=== PATIENT | female | born 1985 | race Caucasian/White ===

== ENCOUNTER → 2017-03-06 | Outpatient (CLI) | payer OTHER ==
[2017-03-06 19:42] LABS: CHOLESTEROL LEVEL 159 MG/DL (<200); TRIGLYCERIDES LEVEL 40 MG/DL (<150)
--- NOTE | 2017-03-06 20:48 | REP ---
Clinical: Pain. Technique: Single AP view of the pelvis. Findings: Osseous structures and joint spaces are symmetric and normal. Surrounding soft tissues are unremarkable. Phleboliths noted in the pelvis. Impression: Normal pelvic radiograph. Signed by Beto Gomez MD 03/06/2017 05:53 P
[2017-03-09 00:06] LABS: Lyme Disease IgG/IgM Antibodie <0.91 ISR (0.00-0.90); Lyme Disease IgM Ab Quantitati <0.80 index (0.00-0.79)
== END ==
LOC: M LAB 15:38
PROVIDERS: ATTEND Nurse Practitioner Family
DX: Z13.220 Encounter for screening for lipoid disorders (principal); Z13.29 Encounter for screening for other suspected endocrine disorder; M25.559 Pain in unspecified hip; R63.5 Abnormal weight gain; M36.8 Systemic disorders of connective tissue in other diseases classified elsewhere; R53.81 Other malaise

== ENCOUNTER 2018-10-20 12:54 | Emergency (ER) | payer MEDICAID, OTHER ==
[~2018-10-20] VITALS: Ht 165.1 cm; Wt 54.5 kg
[2018-10-20] MEDS ORDERED: POLY33503 (13:04)
[2018-10-20] MEDS ORDERED: PENT10CA PO (13:04)
[2018-10-20] MEDS ORDERED: FLUO10TA2 (13:04)
[2018-10-20] MEDS ORDERED: LACTULOSE 20 GM/30 ML SYRUP UD PO ONE (15:45)
--- NOTE | 2018-10-20 15:45 | REP ---
KUB, TWO VIEWS: HISTORY: Constipation. A small amount of air is present in small and large intestine. There are no air fluid levels or dilated loops of intestine. There is no pneumoperitoneum. A small amount of stool is present in the colon. IMPRESSION: Nonspecific bowel gas pattern. Electronically Signed by Rupert Ford MD 10/20/2018 03:46 P
[2018-10-20] MEDS ORDERED: COLA100C5 PO (16:17)
[2018-10-20 16:27] VITALS: BP 160/80
[2018-12-18] MEDS ORDERED: FLUO20CA8 PO (16:24)
[2018-12-18] MEDS ORDERED: FLUO10CA8 PO (16:28)
[2018-12-18] MEDS ORDERED: TRUL3TAB PO (16:28)
== END 2018-10-20 16:38 | disposition home or self-care (01) ==
LOC: M ED 12:54
DX: R10.9 Unspecified abdominal pain (principal)

== ENCOUNTER → 2018-12-25 | Outpatient (CLI) | payer OTHER ==
[~2018-12-25] MED LIST: COLA100C5 PO; FLUO10CA8 PO; FLUO10TA2; FLUO20CA8 PO; PENT10CA PO; POLY33503; TRUL3TAB PO
[2018-12-25 16:02] LABS: FREE T4 0.99 NG/DL (0.76-1.46); THYROID STIMULATING HORMONE 0.796 uIU/ML (0.358-3.740)
== END ==
LOC: M LAB 15:08
PROVIDERS: ATTEND Internal Medicine Gastroenterology
DX: K58.1 Irritable bowel syndrome with constipation (principal)

== ENCOUNTER 2019-01-01 06:43 | Day surgery (SDC) | payer OTHER ==
[~2019-01-01] VITALS: Ht 160 cm; Wt 56.7 kg
[~2019-01-01 06:43] MED LIST changes: +NS 1,000 ML IV ONE
[2019-01-01] MEDS ORDERED: LIDOCAINE 2% INJ 100 MG/5 ML SDV (FOR ANES.) As Ordered ONE (07:04)
[2019-01-01] MEDS ORDERED: PROPOFOL 200 MG/20 ML VIAL As Ordered ONE (07:04)
--- NOTE | 2019-01-01 07:51 | ROOR ---
Patient Name: Latonya Jiménez Procedure Date: 01/01/2019 7:37 AM Date of : 1985 Age: 33 Room: [facility] Gender: Female Note Status: Finalized Procedure: Colonoscopy Indications: Follow-up for history of colon polyps, Irritable bowel syndrome with constipation Providers: Abdullahi WEBER MD Referring MD: Kaylie CHAMBERLAIN NP Requesting Provider: Medicines: Monitored Anesthesia Care Complications: No immediate complications. Procedure: Pre-Anesthesia Assessment: - The heart rate, respiratory rate, oxygen saturations, blood pressure, adequacy of pulmonary ventilation, and response to care were monitored throughout the procedure. The Colonoscope was introduced through the anus and advanced to 10 cm into the ileum. The colonoscopy was performed without difficulty. The patient tolerated the procedure well. The quality of the bowel preparation was good. Findings: The perianal and digital rectal examinations were normal. Small Internal Hemorrhoids. The entire examined colon appeared normal on direct and retroflexion views. The terminal ileum appeared normal. Retroflexion in the right colon was performed. Impression: - Small Internal Hemorrhoids. - The entire colon is normal on direct and retroflexion views. - The examined portion of the ileum was normal. - No specimens collected. Recommendation: - Continue present medications. Abdullahi Weber MD Abdullahi WEBER MD 01/01/2019 7:50:52 AM This report has been signed electronically. Number of Addenda: 0 Note Initiated On: 01/01/2019 7:37 AM Estimated Blood Loss: Estimated blood loss: none.
[2019-01-01 08:05] VITALS: BP 111/89
== END 2019-01-01 08:15 | disposition home or self-care (01) ==
LOC: M OPP 06:43
PROVIDERS: ATTEND Internal Medicine Gastroenterology
DX: K58.1 Irritable bowel syndrome with constipation (principal); K64.8 Other hemorrhoids; Z86.010 Personal history of colon polyps; Z87.891 Personal history of nicotine dependence

== ENCOUNTER → 2019-08-12 | Outpatient (CLI) | payer OTHER ==
[~2019-08-12] MED LIST changes: -NS 1,000 ML IV ONE; +PROHANCE 279.3MG/ML 15ML VIAL (A9576) As Ordered ONE
--- NOTE | 2019-08-13 09:58 | REP ---
RIGHT PELVIS WITH AND WITHOUT CONTRAST: COMPARISON: [facility] 07/24/2019. CLINICAL HISTORY: Pain, vulvar cyst. In the left posterior lateral vaginal wall there is a simple appearing cyst which is homogenously hypointense on T1 and hyperintense on T2. There is no internal enhancement. It measures approximately 2.0 x 1.8 x 1.8 cm. This is consistent with a Bartholin gland cyst. The uterus is anteverted. Uterine length is approximately 8.3 cm. Endometrial thickness is approximately 8 mm. There are normal appearing follicles in the right ovary. There is a dominant follicle which measures 1.9 cm. In the left ovary there is a hemorrhagic follicle measuring 1.2 cm. Trace physiologic amount of free fluid is seen in the pelvis. No adenopathy is seen. The visualized osseous structures demonstrate normal marrow signal. IMPRESSION: Findings consistent with a simple left Bartholin gland cyst with no internal solid component and no enhancement. Maximum diameter is 2 cm. No evidence of suspicious ovarian mass. Trace free fluid in the cul-de-sac is likely physiologic. Electronically Signed by Harry Chen MD 08/16/2019 02:47 P
== END ==
LOC: M RAD 16:06
PROVIDERS: ATTEND Obstetrics & Gynecology Obstetrics
DX: N75.0 Cyst of Bartholin's gland (principal)
CPT/HCPCS: 72197; A9576

== ENCOUNTER → 2019-09-07 | Outpatient (REF) | payer OTHER ==
[~2019-09-07] MED LIST changes: -PROHANCE 279.3MG/ML 15ML VIAL (A9576) As Ordered ONE
[2019-09-11 14:58] LABS: HPV HYBRID CAPTURE II Negative (Negative)
== END ==
LOC: M SFHCWAGY 16:15
PROVIDERS: ATTEND Nurse Practitioner Family
DX: Z12.4 Encounter for screening for malignant neoplasm of cervix (principal)

== ENCOUNTER → 2020-03-10 | Outpatient (CLI) | payer OTHER ==
[~2020-03-10] MED LIST changes: +FLUO10CA15 PO; -FLUO10CA8 PO; +FLUO20CA20 PO; -FLUO20CA8 PO
--- NOTE | 2020-03-10 12:40 | REP ---
REASON FOR EXAM: Chronic pelvic pain. COMPARISON: 10/28/2007, which was within normal limits. Transvesical imaging only was performed. I am unsure why transvaginal imaging was not performed. It is not stated on the worksheet that the patient refused transvaginal imaging. The lack of transvaginal imaging decreases the sensitivity of the exam. The uterus measures 8.2 x 3.4 x 4.2 cm. The parenchymal echo pattern is within normal limits. The endometrial echo complex is smooth and unremarkable appearing measuring 1.3 cm in thickness. In the cervical region, there are two hypoechoic structures, the largest measures 2.2 x 2.4 x 1.8 cm. Color Doppler shows no blood flow. The right ovary measures 4.7 x 3.9 cm and is within normal limits. The left ovary measures 4.8 x 3.6 x 4 cm. Within the left ovary, there is a 3.4 x 2.4 cm sized anechoic structure. There is no significant free fluid in the cul-de-sac. A trace amount of free fluid was present. Urinary bladder measures approximately 11 x 5 x 10 cm. IMPRESSION: 1. There is a simple cyst in the left ovary as described above. Consider 2-month followup. 2. There appear to be complex nabothian cysts as described above. These were not present on the prior ultrasound exam. 3. There is a trace amount of free pelvic fluid probably physiologic. It should be stated that the prior pelvic MRI of 08/12/2019 did not show evidence of nabothian cysts. A Bartholin cyst was noted. Today's ultrasound examination did not image that portion of the vagina as that was not ordered. Consider re-evaluation with pelvic MRI for comparison to the prior exam if clinically relevant.
== END ==
LOC: M WHC 11:23
PROVIDERS: ATTEND Nurse Practitioner Family
DX: G89.29 Other chronic pain (principal); R10.2 Pelvic and perineal pain; N83.202 Unspecified ovarian cyst, left side; R93.5 Abnormal findings on diagnostic imaging of other abdominal regions, including retroperitoneum

== ENCOUNTER → 2020-05-03 | Outpatient (CLI) | payer OTHER ==
[~2020-05-03] MED LIST changes: -FLUO10CA15 PO; +FLUO10CA16 PO
--- NOTE | 2020-05-04 01:15 | REP ---
PELVIC ULTRASOUND: Real-time sonographic evaluation of pelvis performed utilizing transabdominal and endovaginal technique. Bladder measures 10.4 x 6.8 cm. Uterus measures 7.2 x 3.5 x 4.1 cm. Endometrial thickness is 7 mm. Complex nabothian cyst measures 2.3 x 1.5 x 1.3 cm. Right ovary measures 3.0 x 1.6 x 4.1 cm. There is a dominant follicle in the right ovary 1.6 cm in maximum diameter. The left ovary measures 3.2 x 2.2 x 2.9 cm. Complex cystic structure of the left ovary measures 2.4 x 1.9 x 2.3 cm. Previously, there was an anechoic cyst in the left ovary with a maximum diameter of 3.4 cm. No ovarian torsion is seen bilaterally with duplex Doppler evaluation. An oval anechoic cyst is seen posterior to the uterus 2.1 x 1.3 x 1.8 cm. This probably represents a small benign paraovarian cyst. IMPRESSION: Decreased size left ovarian cyst now containing complex fluid.
== END ==
LOC: M WHC 14:00
PROVIDERS: ATTEND Nurse Practitioner Family
DX: N83.202 Unspecified ovarian cyst, left side (principal)

== ENCOUNTER → 2021-02-06 | Outpatient (CLI) | payer OTHER ==
[~2021-02-06] MED LIST changes: +PLEC3TAB PO; -TRUL3TAB PO
--- NOTE | 2021-02-06 11:30 | REP ---
INDICATION: PELVIC PAIN DURING MENSES COMPARISON: 05/03/2020 TECHNIQUE: Transabdominal pelvic ultrasound with color Doppler evaluation of the ovaries. FINDINGS: Bladder is unremarkable and measures 11.3 x 11.5 x 8.6 cm. Normal anteverted uterus measures 8.2 x 3.2 x 3.9 cm. The endometrial complex measures 5.0 mm thickness. Previously suggested complex nabothian cyst not visualized on current exam Bilateral ovaries are normal in appearance and vascularity without evidence for torsion. Right ovary measures 4.1 x 2.2 x 3.2 cm; R I = 0.56. Left ovary measures 5.1 x 3.8 x 4.4 cm with 4.2 x 3.1 x 3.5 cm complex presumed physiologic hemorrhagic cyst; R I = 0.49. IMPRESSION: 1. Normal uterus and right ovary. 2. 4.2 cm possible hemorrhagic cyst in the left ovary. This may represent a new finding or residual complex cyst as noted on prior exam. Consider follow-up examination in 4-6 weeks to evaluate for resolution. <Electronically signed by Beto Gomez > 02/06/21 [id number]
== END ==
LOC: M RAD 09:48
PROVIDERS: ATTEND Physician Assistant
DX: R10.2 Pelvic and perineal pain (principal)

== ENCOUNTER → 2021-09-11 | Outpatient (CLI) | payer OTHER | LOC: M WHC 15:27 | PROVIDERS: ATTEND Nurse Practitioner Women's Health | DX: Z53.9 Procedure and treatment not carried out, unspecified reason (principal); Z12.31 Encounter for screening mammogram for malignant neoplasm of breast ==

== ENCOUNTER → 2021-09-11 | Outpatient (REF) | payer OTHER | LOC: M SFHCWAGY 19:27 | PROVIDERS: ATTEND Nurse Practitioner Women's Health | DX: Z12.4 Encounter for screening for malignant neoplasm of cervix (principal) ==

== ENCOUNTER 2022-04-28 17:01 | Emergency (ER) | payer OTHER ==
[~2022-04-28] VITALS: Ht 162.6 cm; Wt 56.6 kg
[~2022-04-28 17:01] MED LIST changes: +FLUO-96 PO; -FLUO10CA16 PO; +FLUO10CA18 PO; -FLUO20CA20 PO
[2022-04-28] MEDS ORDERED: ERGO500029 (17:12)
[2022-04-28] MEDS ORDERED: EMETSOL PO ×2 (17:23→17:25)
[2022-04-28] MEDS ORDERED: MUCI1LIQ3 PO (17:23)
[2022-04-28] MEDS ORDERED: QC A650T3 PO (17:23)
[2022-04-28 18:21] LABS: BASO % 0.2 % (0.0-1.0); EOS # 0.1 10^3/uL (0.0-0.5); EOS % 0.9 % (0.0-3.0); HEMATOCRIT 43.5 % (36.0-47.0); LYMPH # 2.2 10^3/uL (1.5-5.0); LYMPH % 39.5 % (24.0-44.0); MEAN CORPUSCULAR HEMOGLOBIN 28.2 pg (27.0-33.0); MEAN CORPUSCULAR HGB CONC 32.2 g/dl (32.0-36.5); MEAN CORPUSCULAR VOLUME 87.5 fl (80.0-96.0); MONO # 0.4 10^3/uL (0.0-0.8); MONO % 7.2 % (2.0-8.0); NEUTROPHILS # 2.9 10^3/uL (1.5-8.5); PLATELET COUNT, AUTOMATED 213 10^3/uL (150-450); RED BLOOD COUNT 4.97 10^6/uL (4.00-5.40); WHITE BLOOD COUNT 5.5 10^3/uL (4.0-10.0)
[2022-04-28 18:46] LABS: ALBUMIN 3.7 GM/DL (3.2-5.2); BILIRUBIN,DIRECT 0.2 MG/DL (0.0-0.2); BILIRUBIN,TOTAL 0.3 MG/DL (0.2-1.0); TOTAL PROTEIN 6.8 GM/DL (6.4-8.2)
[2022-04-28] MEDS ORDERED: PSEU120T19 PO (19:43)
[2022-04-28] MEDS ORDERED: FLON27.5 NARES (19:43)
[2022-04-28 20:02] VITALS: BP 129/90
== END 2022-04-28 20:04 | disposition home or self-care (01) ==
LOC: M ED 17:01
DX: J06.9 Acute upper respiratory infection, unspecified (principal)

== ENCOUNTER → 2022-09-23 | Outpatient (CLI) | payer OTHER ==
[~2022-09-23] MED LIST changes: +EMETSOL PO; +ERGO500029; +FLON27.5 NARES; +MUCI1LIQ3 PO; +PSEU120T19 PO; +QC A650T3 PO
[2022-09-23 21:01] LABS: TOTAL 25(OH) VITAMIN D 65.5 NG/ML (30.0-100.0)
== END ==
LOC: M PLALAB 16:38
PROVIDERS: ATTEND Physician Assistant
DX: E55.9 Vitamin D deficiency, unspecified (principal); E63.8 Other specified nutritional deficiencies

== ENCOUNTER → 2022-09-23 | Outpatient (REF) | payer OTHER | LOC: M SFHCWAGY 13:06 | PROVIDERS: ATTEND Nurse Practitioner Family | DX: Z12.4 Encounter for screening for malignant neoplasm of cervix (principal) | CPT/HCPCS: 87624; G0123 ==

== ENCOUNTER → 2023-02-12 | Outpatient (CLI) | payer OTHER ==
[~2023-02-12] MED LIST changes: -FLUO10TA2; +FLUO1TAB
[2023-02-12 17:20] LABS: BASO # 0.1 10^3/uL (0.0-0.2); BASO % 0.7 % (0.0-1.0); EOS # 0.1 10^3/uL (0.0-0.5); EOS % 1.4 % (0.0-3.0); HEMATOCRIT 44.7 % (36.0-47.0); HEMOGLOBIN 14.2 g/dl (12.0-15.5); LYMPH # 2.9 10^3/uL (1.5-5.0); LYMPH % 41.4 % (24.0-44.0); MEAN CORPUSCULAR HEMOGLOBIN 27.9 pg (27.0-33.0); MEAN CORPUSCULAR HGB CONC 31.8 g/dl (32.0-36.5); MEAN CORPUSCULAR VOLUME 87.8 fl (80.0-96.0); MONO # 0.5 10^3/uL (0.0-0.8); MONO % 6.6 % (2.0-8.0); NEUTROPHILS # 3.5 10^3/uL (1.5-8.5); NEUTROPHILS % 49.8 % (36.0-66.0); PLATELET COUNT, AUTOMATED 301 10^3/uL (150-450); RED BLOOD COUNT 5.09 10^6/uL (4.00-5.40)
[2023-02-12 17:35] LABS: ERYTHROCYTE SEDIMENTATION RATE 6 mm/hr (0-20)
[2023-02-12 17:45] LABS: ALBUMIN 4.1 G/DL (3.2-5.2); ALKALINE PHOSPHATASE 68 U/L (46-116); ALT/SGPT 21 U/L (7.0-40); AST/SGOT 11 U/L (<34); BILIRUBIN,TOTAL 0.4 MG/DL (0.3-1.2); BLOOD UREA NITROGEN 13 MG/DL (9-23); CALCIUM LEVEL 9.3 MG/DL (8.5-10.1); CARBON DIOXIDE LEVEL 30 MMOL/L (20-31); CHLORIDE LEVEL 104 MMOL/L (98-107); CREATININE FOR GFR 0.65 MG/DL (0.55-1.30); GLOMERULAR FILTRATION RATE > 60.0 (>60); GLUCOSE, FASTING 75 MG/DL (60-100); POTASSIUM SERUM 4.3 MMOL/L (3.5-5.1); SODIUM LEVEL 139 MMOL/L (136-145); TOTAL PROTEIN 6.8 G/DL (5.7-8.2)
[2023-02-12 17:48] LABS: C REACTIVE PROTEIN QUANTITATIV < 0.40 MG/DL (<1.0)
[2023-02-12 17:49] LABS: FREE T3 3.5 PG/ML (2.3-4.2); FREE T4 0.97 NG/DL (0.89-1.76); IMMUNOGLOBULIN A 192.3 MG/DL (40-350); IMMUNOGLOBULIN G 811 MG/DL (650-1600); THYROID STIMULATING HORMONE 1.198 uIU/ML (0.55-4.78); TOTAL 25(OH) VITAMIN D 44.3 NG/ML (20.0-100.0)
[2023-02-12 17:50] LABS: PROGESTERONE 1.35 NG/ML; VITAMIN B12 LEVEL 1150 PG/ML (211-911)
[2023-02-12 17:52] LABS: THYROID PEROXIDASE ANTIBODY < 28.0 U/ML (<60.0)
[2023-02-17 11:07] LABS: ALUMINUM LEVEL 3 ug/L (0-9); ANTINUCLEAR ANTIBODIES DIRECT Negative (Negative); MAGNESIUM RBC LEVEL 4.4 mg/dL (4.2-6.8); Methylmalonic Acid 130 nmol/L (0-378); TISSUE TRANSGLUTAMINASE IgA <2 U/mL (0-3); UNITSIGA FOR GLIADIN IGA 7 units (0-19); UNITSIGG FOR GLIADIN IGG 16 units (0-19)
== END ==
LOC: M LAB 16:02
PROVIDERS: ATTEND Nurse Practitioner Pediatrics
DX: F32.81 Premenstrual dysphoric disorder (principal); F90.2 Attention-deficit hyperactivity disorder, combined type; F43.12 Post-traumatic stress disorder, chronic

== ENCOUNTER → 2023-06-16 | Outpatient (CLI) | payer OTHER ==
[~2023-06-16] MED LIST changes: +ISOVUE-370 76% 100ML VIAL As Ordered ONE
[2023-06-16 13:46] LABS: BASO # 0.1 10^3/uL (0.0-0.2); BASO % 0.7 % (0.0-1.0); EOS % 0.6 % (0.0-3.0); HEMOGLOBIN 14.6 g/dl (12.0-15.5); LYMPH # 2.4 10^3/uL (1.5-5.0); LYMPH % 33.5 % (24.0-44.0); MEAN CORPUSCULAR HEMOGLOBIN 29.7 pg (27.0-33.0); MEAN CORPUSCULAR HGB CONC 33.2 g/dl (32.0-36.5); MEAN CORPUSCULAR VOLUME 89.6 fl (80.0-96.0); MONO # 0.5 10^3/uL (0.0-0.8); MONO % 7.4 % (2.0-8.0); NEUTROPHILS # 4.1 10^3/uL (1.5-8.5); NEUTROPHILS % 57.5 % (36.0-66.0); PLATELET COUNT, AUTOMATED 213 10^3/uL (150-450); RED BLOOD COUNT 4.91 10^6/uL (4.00-5.40); WHITE BLOOD COUNT 7.1 10^3/uL (4.0-10.0)
[2023-06-16 14:14] LABS: LIPASE 31 U/L (12-53)
[2023-06-16 14:16] LABS: ALBUMIN 4.2 G/DL (3.2-5.2); ALKALINE PHOSPHATASE 61 U/L (46-116); ALT/SGPT 13 U/L (7.0-40); AST/SGOT < 8 U/L (<34); BILIRUBIN,TOTAL 0.9 MG/DL (0.3-1.2); BLOOD UREA NITROGEN 9 MG/DL (9-23); CALCIUM LEVEL 9.4 MG/DL (8.5-10.1); CARBON DIOXIDE LEVEL 29 MMOL/L (20-31); CHLORIDE LEVEL 104 MMOL/L (98-107); CREATININE FOR GFR 0.69 MG/DL (0.55-1.30); GLOMERULAR FILTRATION RATE > 60.0 (>60); GLUCOSE, FASTING 83 MG/DL (60-100); POTASSIUM SERUM 3.4 MMOL/L (3.5-5.1); SODIUM LEVEL 137 MMOL/L (136-145); TOTAL PROTEIN 7.4 G/DL (5.7-8.2)
== END ==
LOC: M RAD 13:14
PROVIDERS: ATTEND Physician Assistant
DX: R14.0 Abdominal distension (gaseous) (principal); R10.13 Epigastric pain; N80.9 Endometriosis, unspecified; R11.0 Nausea; N28.1 Cyst of kidney, acquired
CPT/HCPCS: 36415; 74177; 80053; 83690; 85025; Q9967

== ENCOUNTER 2023-09-25 09:48 | Emergency (ER) | payer OTHER ==
[~2023-09-25] VITALS: Ht 162.6 cm; Wt 50.0 kg
[~2023-09-25 09:48] MED LIST changes: -ISOVUE-370 76% 100ML VIAL As Ordered ONE
[2023-09-25] MEDS ORDERED: GABA-1171 (10:24)
[2023-09-25] MEDS ORDERED: AMPH1CAP16 (10:24)
[2023-09-25] MEDS ORDERED: SIME125C33 (10:24)
[2023-09-25] MEDS ORDERED: ONDA4TAB6 (10:24)
[2023-09-25] MEDS ORDERED: XIFA550T (10:24)
[2023-09-25] MEDS ORDERED: OMEP-173 (10:24)
[2023-09-25] MEDS ORDERED: CYAN-1 (10:24)
[2023-09-25] MEDS ORDERED: TRET0.0540 (10:24)
[2023-09-25 11:14] LABS: BASO % 0.2 % (0.0-1.0); EOS % 0.4 % (0.0-3.0); HEMATOCRIT 45.5 % (36.0-47.0); LYMPH # 0.5 10^3/uL (1.5-5.0); MEAN CORPUSCULAR HEMOGLOBIN 29.4 pg (27.0-33.0); MONO # 0.2 10^3/uL (0.0-0.8); MONO % 2.5 % (2.0-8.0); NEUTROPHILS # 8.5 10^3/uL (1.5-8.5); NEUTROPHILS % 91.5 % (36.0-66.0); PLATELET COUNT, AUTOMATED 194 10^3/uL (150-450); RED BLOOD COUNT 5.11 10^6/uL (4.00-5.40); WHITE BLOOD COUNT 9.3 10^3/uL (4.0-10.0)
[2023-09-25 11:15] LABS: APPEARANCE, URINE HAZY (CLEAR); BACTERIA, URINE AUTO NEGATIVE (NEGATIVE); BILIRUBIN, URINE AUTO NEGATIVE (NEGATIVE); BLOOD, URINE BLOOD NEGATIVE (NEGATIVE); COLOR, URINE YELLOW (YELLOW); GLUCOSE, URINE (UA) AUTO NEGATIVE (NEGATIVE); KETONE, URINE AUTO 2+ mg/dL (NEGATIVE); LEUKOCYTE ESTERASE, URINE AUTO NEGATIVE (NEGATIVE); MUCUS, URINE SMALL (NEGATIVE); NITRITE, URINE AUTO NEGATIVE (NEGATIVE); PROTEIN, URINE AUTO 1+ mg/dL (NEGATIVE); RBC, URINE AUTO 0 /HPF (0-3); SPECIFIC GRAVITY URINE AUTO 1.029 (1.002-1.035); SQUAMOUS EPITHELIAL CELL UR AU 3 /HPF (0-6); UROBILINOGEN, URINE AUTO 0.2 mg/dL (0.0-2.0); WBC, URINE AUTO 0 /HPF (0-3)
[2023-09-25 11:41] LABS: LIPASE 31 U/L (12-53)
[2023-09-25 11:42] LABS: HCG, SERUM QUANTITATIVE < 2.6 MIU/ML (<4.2)
[2023-09-25 11:44] LABS: ALKALINE PHOSPHATASE 68 U/L (46-116); ALT/SGPT 23 U/L (7.0-40); AMYLASE 96 U/L (30-118); AST/SGOT 13 U/L (<34); BILIRUBIN,DIRECT 0.4 MG/DL (<0.4); BILIRUBIN,TOTAL 1.3 MG/DL (0.3-1.2); BLOOD UREA NITROGEN 15 MG/DL (9-23); CALCIUM LEVEL 8.7 MG/DL (8.5-10.1); CARBON DIOXIDE LEVEL 28 MMOL/L (20-31); CHLORIDE LEVEL 105 MMOL/L (98-107); CREATININE FOR GFR 0.63 MG/DL (0.55-1.30); GLOMERULAR FILTRATION RATE > 60.0 (>60); GLUCOSE, FASTING 98 MG/DL (60-100); POTASSIUM SERUM 4.1 MMOL/L (3.5-5.1); SODIUM LEVEL 140 MMOL/L (136-145); TOTAL PROTEIN 6.7 G/DL (5.7-8.2)
[2023-09-25] MEDS ORDERED: DICYCLOMINE 10 MG CAP PO ONE (13:10)
[2023-09-25] MEDS ORDERED: NS 1,000 ML IV ONE (13:10)
[2023-09-25] MEDS ORDERED: ONDANSETRON 4MG 2ML VIAL IV ONE (13:10)
[2023-09-25] MEDS ORDERED: ISOVUE-370 76% 100ML VIAL As Ordered ONE (13:19)
[2023-09-25] MEDS ORDERED: ONDA4TAB6 PO (14:29)
[2023-09-25] MEDS ORDERED: CVS2.1SU PR (14:29)
[2023-09-25] MEDS ORDERED: NS 500 ML IV ONE (14:55)
[2023-09-25 16:20] VITALS: BP 108/62; TEMP 98.2; O2SAT 100
== END 2023-09-25 16:22 | disposition home or self-care (01) ==
LOC: M ED 09:48
DX: K59.00 Constipation, unspecified (principal); R11.2 Nausea with vomiting, unspecified; Z90.89 Acquired absence of other organs; N80.9 Endometriosis, unspecified; Z98.890 Other specified postprocedural states; Z79.899 Other long term (current) drug therapy
CPT/HCPCS: 74177; 80048; 80076; 81001; 82150; 83690; 84702; 85025; 96361; 96374; 99284; J2405; Q9967

== ENCOUNTER → 2023-10-18 | Outpatient (CLI) | payer OTHER ==
[~2023-10-18] MED LIST changes: +AMPH1CAP16; +CVS2.1SU PR; +CYAN-1; +GABA-1171; +OMEP-173; +ONDA4TAB6; +ONDA4TAB6 PO; +SIME125C33; +TRET0.0540; +XIFA550T
[2023-10-18 09:19] LABS: BASO % 0.7 % (0.0-1.0); EOS # 0.1 10^3/uL (0.0-0.5); EOS % 2.4 % (0.0-3.0); HEMATOCRIT 43.1 % (36.0-47.0); HEMOGLOBIN 14.1 g/dl (12.0-15.5); LYMPH # 2.4 10^3/uL (1.5-5.0); LYMPH % 43.7 % (24.0-44.0); MEAN CORPUSCULAR HEMOGLOBIN 29.3 pg (27.0-33.0); MEAN CORPUSCULAR HGB CONC 32.7 g/dl (32.0-36.5); MEAN CORPUSCULAR VOLUME 89.6 fl (80.0-96.0); MONO # 0.5 10^3/uL (0.0-0.8); MONO % 8.6 % (2.0-8.0); NEUTROPHILS # 2.4 10^3/uL (1.5-8.5); NEUTROPHILS % 44.4 % (36.0-66.0); PLATELET COUNT, AUTOMATED 216 10^3/uL (150-450); RED BLOOD COUNT 4.81 10^6/uL (4.00-5.40); WHITE BLOOD COUNT 5.5 10^3/uL (4.0-10.0)
[2023-10-18 09:50] LABS: BLOOD UREA NITROGEN 11 MG/DL (9-23); CARBON DIOXIDE LEVEL 26 MMOL/L (20-31); CHLORIDE LEVEL 106 MMOL/L (98-107); CREATININE FOR GFR 0.65 MG/DL (0.55-1.30); GLOMERULAR FILTRATION RATE > 60.0 (>60); GLUCOSE, FASTING 85 MG/DL (60-100); POTASSIUM SERUM 4.2 MMOL/L (3.5-5.1); SODIUM LEVEL 138 MMOL/L (136-145)
[2023-10-18 09:52] LABS: FREE T4 1.01 NG/DL (0.89-1.76); VITAMIN B12 LEVEL 1237 PG/ML (211-911)
[2023-10-18 09:53] LABS: THYROID STIMULATING HORMONE 0.972 uIU/ML (0.55-4.78); TOTAL 25(OH) VITAMIN D 59.1 NG/ML (20.0-100.0)
== END ==
LOC: M LAB 08:17
PROVIDERS: ATTEND Physician Assistant
DX: N80.9 Endometriosis, unspecified (principal); E59 Dietary selenium deficiency; E53.8 Deficiency of other specified B group vitamins

== ENCOUNTER → 2023-10-18 | Outpatient (CLI) | payer OTHER | LOC: M LAB 08:14 | PROVIDERS: ATTEND Internal Medicine Gastroenterology | DX: R10.31 Right lower quadrant pain (principal); R10.32 Left lower quadrant pain; R19.4 Change in bowel habit; R14.3 Flatulence; R63.4 Abnormal weight loss; K58.9 Irritable bowel syndrome, unspecified; Z83.79 Family history of other diseases of the digestive system ==

== ENCOUNTER → 2023-10-19 | Outpatient (REF) | payer OTHER | LOC: M LAB REF 10:13 | PROVIDERS: ATTEND Internal Medicine Gastroenterology | DX: R10.31 Right lower quadrant pain (principal); R10.32 Left lower quadrant pain; R19.4 Change in bowel habit; R14.3 Flatulence; R63.4 Abnormal weight loss; K58.9 Irritable bowel syndrome, unspecified; Z83.79 Family history of other diseases of the digestive system ==

== ENCOUNTER → 2023-11-12 | Outpatient (REF) | payer OTHER | LOC: M PLALAB 15:11 | PROVIDERS: ATTEND Nurse Practitioner Family | DX: Z12.4 Encounter for screening for malignant neoplasm of cervix (principal) ==

== ENCOUNTER → 2023-11-12 | Outpatient (CLI) | payer OTHER ==
[2023-11-15 16:26] LABS: HE4 56.9 pmol/L (0.0-61.2)
== END ==
LOC: M PLALAB 14:48
PROVIDERS: ATTEND Nurse Practitioner Family
DX: N80.9 Endometriosis, unspecified (principal)

== ENCOUNTER → 2023-12-30 | Outpatient (CLI) | payer OTHER ==
[~2023-12-30] MED LIST changes: -CVS2.1SU PR; +GLYC1SUP38 PR
== END ==
LOC: M RAD 12:27
PROVIDERS: ATTEND Nurse Practitioner Family
DX: N88.8 Other specified noninflammatory disorders of cervix uteri (principal); R10.2 Pelvic and perineal pain

== ENCOUNTER → 2024-01-04 | Outpatient (REF) | payer OTHER | LOC: M LAB REF 10:19 | PROVIDERS: ATTEND Internal Medicine Gastroenterology | DX: K59.00 Constipation, unspecified (principal); R14.3 Flatulence; R63.0 Anorexia ==

== ENCOUNTER → 2024-04-12 | Outpatient (REF) | payer OTHER ==
[~2024-04-12] MED LIST changes: +FLUO-290 PO; -FLUO10CA18 PO; +ONDA-282; +ONDA-282 PO; -ONDA4TAB6; -ONDA4TAB6 PO
[2024-04-12 18:25] LABS: BASO # 0.1 10^3/uL (0.0-0.2); BASO % 0.6 % (0.0-1.0); EOS # 0.1 10^3/uL (0.0-0.5); EOS % 1.4 % (0.0-3.0); HEMATOCRIT 43.7 % (36.0-47.0); HEMOGLOBIN 14.3 g/dl (12.0-15.5); LYMPH # 2.8 10^3/uL (1.5-5.0); LYMPH % 36.2 % (24.0-44.0); MEAN CORPUSCULAR HEMOGLOBIN 29.2 pg (27.0-33.0); MEAN CORPUSCULAR HGB CONC 32.7 g/dl (32.0-36.5); MEAN CORPUSCULAR VOLUME 89.4 fl (80.0-96.0); MONO # 0.5 10^3/uL (0.0-0.8); MONO % 6.4 % (2.0-8.0); NEUTROPHILS # 4.2 10^3/uL (1.5-8.5); NEUTROPHILS % 55.1 % (36.0-66.0); PLATELET COUNT, AUTOMATED 251 10^3/uL (150-450); RED BLOOD COUNT 4.89 10^6/uL (4.00-5.40); WHITE BLOOD COUNT 7.7 10^3/uL (4.0-10.0)
[2024-04-12 18:30] LABS: ERYTHROCYTE SEDIMENTATION RATE 4 mm/hr (0-20)
[2024-04-12 18:47] LABS: C REACTIVE PROTEIN QUANTITATIV < 0.40 MG/DL (<1.0)
[2024-04-12 18:49] LABS: ALBUMIN 4.1 G/DL (3.2-5.2); ALKALINE PHOSPHATASE 87 U/L (46-116); ALT/SGPT 20 U/L (7.0-40); AST/SGOT 10 U/L (<34); BILIRUBIN,TOTAL 0.6 MG/DL (0.3-1.2); BLOOD UREA NITROGEN 12 MG/DL (9-23); CARBON DIOXIDE LEVEL 28 MMOL/L (20-31); CHLORIDE LEVEL 104 MMOL/L (98-107); CREATININE FOR GFR 0.64 MG/DL (0.55-1.30); GLOMERULAR FILTRATION RATE > 60.0 (>60); GLUCOSE, FASTING 79 MG/DL (60-100); POTASSIUM SERUM 3.7 MMOL/L (3.5-5.1); SODIUM LEVEL 139 MMOL/L (136-145); TOTAL IRON BINDING CAPACITY 373 UG/DL (250-425); TOTAL PROTEIN 6.8 G/DL (5.7-8.2)
[2024-04-12 18:53] LABS: FREE T4 1.06 NG/DL (0.89-1.76)
[2024-04-12 18:55] LABS: RHEUMATOID FACTOR QUANT 6.8 IU/ML (<14); THYROID STIMULATING HORMONE 0.715 uIU/ML (0.55-4.78)
[2024-04-12 18:56] LABS: IRON (FE) 64 UG/DL (50-170); PERCENT SATURATION 17.2 % (13.2-45.0)
[2024-04-12 18:57] LABS: VITAMIN B12 LEVEL 971 PG/ML (211-911)
[2024-04-14 23:12] LABS: ANA (HEP2) Negative (.); CYCLIC CITRULLINATED PEPTIDE 4 units (0-19); EBV AB TO NUCLEAR ANTIGENOLD 51.5 U/mL (0.0-17.9); EBV VIRAL CAPSID AG IgGOLD 66.8 U/mL (0.0-17.9); EBV VIRAL CAPSID AG IgMOLD <36.0 U/mL (0.0-35.9)
== END ==
LOC: M SFHCADAM 15:03
PROVIDERS: ATTEND Physician Assistant
DX: R53.82 Chronic fatigue, unspecified (principal)

== ENCOUNTER → 2024-04-13 | Outpatient (CLI) | payer OTHER ==
[2024-04-13 18:43] LABS: APPEARANCE, URINE CLEAR (CLEAR); BACTERIA, URINE AUTO NEGATIVE (NEGATIVE); BILIRUBIN, URINE AUTO NEGATIVE (NEGATIVE); BLOOD, URINE BLOOD NEGATIVE (NEGATIVE); COLOR, URINE STRAW (YELLOW); GLUCOSE, URINE (UA) AUTO NEGATIVE (NEGATIVE); KETONE, URINE AUTO NEGATIVE (NEGATIVE); LEUKOCYTE ESTERASE, URINE AUTO NEGATIVE (NEGATIVE); MUCUS, URINE SMALL (NEGATIVE); NITRITE, URINE AUTO NEGATIVE (NEGATIVE); PROTEIN, URINE AUTO NEGATIVE (NEGATIVE); RBC, URINE AUTO 0 /HPF (0-3); SPECIFIC GRAVITY URINE AUTO 1.004 (1.002-1.035); SQUAMOUS EPITHELIAL CELL UR AU 1 /HPF (0-6); UROBILINOGEN, URINE AUTO 0.2 mg/dL (0.0-2.0); WBC, URINE AUTO 0 /HPF (0-3)
[2024-04-13 18:52] LABS: COMPLEMENT C3 94.8 MG/DL (84.0-160.0); COMPLEMENT C4 14.2 MG/DL (12-36)
[2024-04-15 16:10] LABS: SSA SJOGRENS A <0.2 AI (0.0-0.9); SSB SJOGRENS B <0.2 AI (0.0-0.9)
[2024-04-15 16:51] LABS: ANTI SMITH(Sm) AB <1.0 NEG AI (<1.0 NEG)
== END ==
LOC: M PLALAB 15:32
PROVIDERS: ATTEND Physician Assistant
DX: R21 Rash and other nonspecific skin eruption (principal)

== ENCOUNTER → 2024-06-25 | Outpatient (REF) | payer OTHER | LOC: M LAB REF 12:04 | PROVIDERS: ATTEND Physician Assistant | DX: L98.9 Disorder of the skin and subcutaneous tissue, unspecified (principal) ==

== ENCOUNTER → 2024-08-04 | Outpatient (REF) | payer OTHER | LOC: M SFHCWAGY 12:41 | PROVIDERS: ATTEND Nurse Practitioner Family | DX: N89.8 Other specified noninflammatory disorders of vagina (principal) ==

== ENCOUNTER → 2024-12-14 | Outpatient (CLI) | payer OTHER | LOC: M WHC 07:10 | PROVIDERS: ATTEND Nurse Practitioner Family | DX: R10.2 Pelvic and perineal pain (principal); N83.202 Unspecified ovarian cyst, left side ==

== ENCOUNTER → 2025-03-14 | Outpatient (CLI) | payer OTHER | LOC: M WHC 07:07 | PROVIDERS: ATTEND Obstetrics & Gynecology | DX: N80.9 Endometriosis, unspecified (principal) ==

== ENCOUNTER → 2025-10-05 | Outpatient (REF) | payer OTHER ==
[2025-10-11 13:12] LABS: HPV APTIMA Not Detected (Not Detected)
== END ==
LOC: M PLALAB 10:20
PROVIDERS: ATTEND Physician Assistant
DX: R87.610 Atypical squamous cells of undetermined significance on cytologic smear of cervix (ASC-US) (principal)
CPT/HCPCS: 87624; G0123